=== PATIENT | male | born 1985 ===

== ENCOUNTER 2023-03-09 16:22 | Inpatient (IN) | payer MEDICAID, SELFPAY ==
[2023-03-09 16:34] VITALS: BP 106/74; PULSE 70; RESP 16; TEMP 36.9; O2SAT 100
[2023-03-09 16:35] VITALS: BP 106/74; PULSE 65; RESP 18; TEMP 36.9; O2SAT 100; BMI 25.8; BMI 26.6
--- NOTE | 2023-03-09 17:20 | PC.NURSE ---
Patient arrived to unit voluntarily with an affidavit from [facility] in [place], [place]. Patient states he is homeless and depressed. He says he recently lost his job and, as a result, lost his apartment. He states he also misses his 13 year old son who lives in [place], [place] and that he would like to take the mother back to court so he could see him, but that it is currently a monetary issue. He denies current si, but did state that when he arrived at the [facility] ER he had a plan to jump in front of a vehicle. He has had previous suicide attempts with his most recent being one year ago through an attempt to overdose on his sleeping medication. He denies avh. Patient does endorse several (approximately 10-12 according to patient) psychiatric hospitalizations with the most recent being at [facility] about a month and a half ago. He denies any current alcohol or drug use and says he has been clean off of methamphetamine and opioids for 3 years now. Patient says when he used he would use a quarter gram of meth per day and take 5-7 tablets of percocet 5-10mg daily. He is now taking one tablet of suboxone 8-2mg sublingually once daily. He also said he takes effexor, but his pharmacy verified that he was not picking it up. Patient was cooperative during assessment.
[2023-03-09] MEDS: buprenorphine-naloxone 4-1 mg Film 2 EACH SUBLINGUAL (18:25)
[2023-03-09 19:44] VITALS: BP 141/64; PULSE 70; RESP 18; TEMP 37; O2SAT 98
[2023-03-10 06:00] VITALS: BP 102/57; PULSE 87; RESP 16; O2SAT 98
[2023-03-10] MEDS: buprenorphine-naloxone 4-1 mg Film 2 EACH SUBLINGUAL (09:34)
[2023-03-10] MEDS: venlafaxine ER (24HR) 75 mg Capsule 225 MG PO (11:22)
[2023-03-10 14:00] VITALS: BP 101/58; PULSE 71; RESP 14; TEMP 37.1; O2SAT 98
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
[2023-03-10 22:00] VITALS: BP 105/67; PULSE 67; RESP 17; TEMP 36.8; O2SAT 95
[2023-03-11 06:00] VITALS: BP 97/68; PULSE 74; RESP 16; O2SAT 98
[2023-03-11] MEDS: buprenorphine-naloxone 4-1 mg Film 2 EACH SUBLINGUAL (08:59)
[2023-03-11] MEDS: venlafaxine ER (24HR) 75 mg Capsule 225 MG PO (09:00)
--- NOTE | 2023-03-11 10:20 | W.PM.NPUPNS ---
Subjective NPU Subjective: Patient presented today reporting that he was doing fine. He reports that the increase in Effexor XR to 225 mg p.o. daily has been tolerable without any notable side effects. We discussed continuing his medication at that dose and working with the social work team tomorrow to look at discharge planning. He denied any new or pressing issues. Mental Status Exam MSE Comments: This is a well-nourished, well-developed, white male, in hospital scrubs, with limited grooming and adequate eye contact. No abnormal movements, except for mild psychomotor retardation. With poor dentition. Cooperative with exam in mild distress. Speech was slightly decreased rate and volume. Mood described as better than yesterday, lazy; affect slightly subdued. Thought process, organized. Thought content: patient denied any suicidal or homicidal ideation, there were no delusions reported or noted, patient denied any auditory or visual hallucinations. Attention, concentration, and memory appeared intact, but none were formally tested. Alert and oriented times three. Insight and judgment appear fair. Impulse control is limited. Vitals/I&O/Wt Last Vital Signs Temp 98.3 F 03/10/23 22:00 Pulse 74 03/11/23 06:00 Resp 16 03/11/23 06:00 BP 97/68 03/11/23 06:00 Pulse Ox 98 03/11/23 06:00 O2 Del Method Room Air 03/11/23 06:00 Weight last 48 hrs Weight 75.92 kg Weight 74.843 kg Weight 72.575 kg Weight 74.843 kg A&P Assessment and plan (1) Major depressive disorder, recurrent: Plan This is a 38-year-old, white male, with genetic loading for addiction issues, with a history of depression, reporting he is currently homeless and currently on medication, but he feels it is not working anymore, although it was effective, in the past. 1. Continue current medication except increased Effexor to 225 mg. 2. Encourage individual, group, and milieu therapy. 3. Continue q-15-minute checks for safety. Involuntary Hold Information 96 Hour Hold: 96 Hour Involuntary Admission: No Attestations NPU Medical Necessity Statement*: Inpatient hospitalization is medically necessary and the clinically appropriate intervention, at this time. We will monitor medications and make changes as indicated. Likely length of stay is three to five days. Coding Level of Care Code Acute Code for Chg Fwd Diagnoses Major depressive disorder, recurrent F33.9
[2023-03-11 14:00] VITALS: BP 106/66; PULSE 82; RESP 15; TEMP 36.8; O2SAT 98
[2023-03-11 19:40] VITALS: BP 117/73; PULSE 68; RESP 15; TEMP 36.9; O2SAT 98
[2023-03-12 06:00] VITALS: BP 113/75; PULSE 80; RESP 18; TEMP 36.9; O2SAT 98
[2023-03-12] MEDS: venlafaxine ER (24HR) 75 mg Capsule 225 MG PO (09:02)
[2023-03-12] MEDS: buprenorphine-naloxone 4-1 mg Film 2 EACH SUBLINGUAL (09:02)
--- NOTE | 2023-03-12 11:24 | W.PM.NPUPNS ---
Subjective NPU Subjective: Patient presented today reporting that he is feeling significantly better with the increase in the Effexor XR. He reports that he has been working with the social work team today on some options for when he leaves and follow-up. We discussed the possibility for discharge in the next 48 hours and likely tomorrow. He reports that he feels much better and is glad that he came to the hospital and got just dealt with so that he can get back to work and continue to improve. Mental Status Exam MSE Comments: This is a well-nourished, well-developed, white male, in hospital scrubs, with limited grooming and adequate eye contact. No abnormal movements, except for mild psychomotor retardation. With poor dentition. Cooperative with exam in mild distress. Speech was slightly decreased rate and volume. Mood described as better; affect slightly subdued. Thought process, organized. Thought content: patient denied any suicidal or homicidal ideation, there were no delusions reported or noted, patient denied any auditory or visual hallucinations. Attention, concentration, and memory appeared intact, but none were formally tested. Alert and oriented times three. Insight and judgment appear fair. Impulse control is limited. Vitals/I&O/Wt Last Vital Signs Temp 98.4 F 03/12/23 06:00 Pulse 80 03/12/23 06:00 Resp 18 03/12/23 06:00 BP 113/75 03/12/23 06:00 Pulse Ox 98 03/12/23 06:00 O2 Del Method Room Air 03/12/23 06:00 Weight last 48 hrs Weight 75.92 kg A&P Assessment and plan (1) Major depressive disorder, recurrent: Plan This is a 38-year-old, white male, with genetic loading for addiction issues, with a history of depression, reporting he is currently homeless and currently on medication, but he feels it is not working anymore, although it was effective, in the past. 1. Continue current medication except increased Effexor to 225 mg. 2. Encourage individual, group, and milieu therapy. 3. Continue q-15-minute checks for safety. Involuntary Hold Information 96 Hour Hold: 96 Hour Involuntary Admission: No Attestations NPU Medical Necessity Statement*: Inpatient hospitalization is medically necessary and the clinically appropriate intervention, at this time. We will monitor medications and make changes as indicated. Likely length of stay is 1-3 days. Coding Level of Care Code Acute Code for Chg Fwd Diagnoses Major depressive disorder, recurrent F33.9
[2023-03-12 14:00] VITALS: BP 105/68; PULSE 73; RESP 15; TEMP 36.9; O2SAT 96
[2023-03-12 19:43] VITALS: BP 115/73; PULSE 79; RESP 16; TEMP 37; O2SAT 96
[2023-03-13 06:00] VITALS: BP 104/65; PULSE 70; RESP 16; O2SAT 98
[2023-03-13] MEDS: venlafaxine ER (24HR) 75 mg Capsule 225 MG PO (08:30)
[2023-03-13] MEDS: buprenorphine-naloxone 4-1 mg Film 2 EACH SUBLINGUAL (08:30)
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
[2023-03-13 11:11] VITALS: BP 104/65; PULSE 70; RESP 16; TEMP 37; O2SAT 98
== END 2023-03-13 15:45 | disposition home or self-care (01) | DRG 885 ==
PROVIDERS: Admitting Provider Psychiatry & Neurology Psychiatry; Visit Provider Psychiatry & Neurology Psychiatry
DX: F33.9 Major depressive disorder, recurrent, unspecified (principal); Z59.00 Homelessness unspecified; Z62.811 Personal history of psychological abuse in childhood; Z62.810 Personal history of physical and sexual abuse in childhood; Z81.1 Family history of alcohol abuse and dependence
CPT/HCPCS: 97165; J0573